=== PATIENT | female | born 1965 | race African-American/Black ===

== ENCOUNTER 2025-07-21 12:29 | Outpatient (AMB) | payer OTHER, SELFPAY ==
--- NOTE | 2025-07-21 12:35 | A.PHYSOV_ITS ---
Vital Signs 07/21/25 12:36 Height 5 ft 2 in Weight 220 lb BMI 40.2 Intake Visit Reasons: Left Knee Injection Intake Note: Patient is a 60 year old female here today for a left knee injection. 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 Allergies No Known Allergies Allergy (Verified 07/21/25 12:37) Medication List - Last Reconciled 07/21/25 by Lupis Travis RN hydrochlorothiazide 12.5 mg PO DAILY meloxicam 15 mg PO DAILY trazodone 50 mg PO DAILY PFSH Surgical History Total knee replacement status (~04/2024) Social History Alcohol intake: never Patient Tobacco Use Status: Never used Tobacco Physical Exam Vital Signs: BMI result Body Mass Index 40.2 Assessment & Plan Assessment & Plan (1) Knee osteoarthritis: Code(s): M17.9 - Osteoarthritis of knee, unspecified Category: Medical Qualifiers: Osteoarthritis type: unspecified Laterality: left Qualified Code(s): M17.12 - Unilateral primary osteoarthritis, left knee Plan: Ms. Gomez is a 60-year-old female seen in evaluation today for left knee osteoarthritis. Today she consented for right knee corticosteroid injection. She is given post injection instructions, lacosamide compresses for 15 minutes. Continue low-impact activities such walking, biking swimming. Follow-up with office 3 months. To the severity of her pain. I will prescribe [place] for breakthrough pain. I patent there are no red flags. She will use the medication sparingly. Operating while taking the medication. Thank you for allowing me to participate in the care of your patient. A Orders: Orders AMB Knee Injection Today M17.9 - Osteoarthritis of knee, unspecified Medications: New [place]alog (triamcinolone acetonide) 40 mg intra-articular ONCE 1 mL 0RF NS M17.9 - Osteoarthritis of knee, unspecified lidocaine (PF) 60 mg (3 mL) Infiltration ONCE 3 mL 0RF M17.9 - Osteoarthritis of knee, unspecified hydrocodone-acetaminophen 5-325 mg Partial Fill upon patient request. 1 tab PO Q6H PRN 28 tabs 0RF pain 7 days M17.9 - Osteoarthritis of knee, unspecified Coding Level of Care Code Procedure Only Diagnoses Osteoarthritis of left knee, unspecified osteoarthritis type M17.12 Osteoarthritis type: unspecified Laterality: left
[2025-07-21 12:36] VITALS: BMI 40.2
--- OUTSIDE RECORDS SUMMARY | 2025-07-21 14:40 | XMS_ITS ---
Author Name [facility] Organization Unknown Encounters Encounter Type Encounter Reason Primary Diagnosis Location Date Ambulatory [facility] 06/24/2024 Care Team Organization Name Specialty Phone Email Start Date End Da te [facility] [id number]
== END 2025-07-21 12:55 | disposition home or self-care (01) ==
LOC: HO.HPHYS 12:30
PROVIDERS: Visit Provider Physician Assistant
DX: M17.12 Unilateral primary osteoarthritis, left knee (principal)
CPT/HCPCS: 20610

== ENCOUNTER → 2025-07-21 12:29 | Outpatient (BNVA) | payer OTHER, SELFPAY | PROVIDERS: Visit Provider Physician Assistant | DX: M17.12 Unilateral primary osteoarthritis, left knee (principal); Z79.1 Long term (current) use of non-steroidal anti-inflammatories (NSAID) | CPT/HCPCS: 20610 ==